=== PATIENT | female | born 1975 | race Caucasian/White ===

== ENCOUNTER 2017-12-06 07:39 | Outpatient (CLI) | payer OTHER ==
--- NOTE | 2017-12-06 09:35 | MRI Report ---
EXAM: MRI BRAIN WITHOUT CONTRAST EXAM DATE: 12/06/2017 08:31 AM. CLINICAL HISTORY: Headache. COMPARISON: None. TECHNIQUE: Multiplanar, multisequence T1-weighted and fluid-sensitive MR sequences of the brain were performed. Sequences optimized for routine evaluation. Other: None. IV Contrast: None. FINDINGS: Brain Volume: Normal for age. Parenchyma/Dura: No mass, acute infarct or hemorrhage. No white matter lesions identified. Ventricles/Cisterns: No hydrocephalus. No abnormal extra-axial fluid collection or hemorrhage. Orbits: Symmetric and unremarkable. Sella Turcica: No space-occupying mass in the region of the pituitary fossa. IAC: Grossly symmetric allowing for limited noncontrast imaging technique. Vasculature: Normal signal flow void is seen in the major arterial structures at the skull base. Sinuses: No acute paranasal sinus disease. Minimal nonspecific medial left mastoid fluid signal. Bones: No focal pathologic-appearing marrow signal changes. Other: None. IMPRESSION: 1. Normal MRI appearance of the brain. No evidence for acute intracranial abnormality. 2. Minimal nonspecific medial left mastoid fluid signal. [facility] Referring Provider Line: [phone] SITE ID: [id number]
== END 2017-12-06 07:40 | disposition home or self-care (01) ==
LOC: DI 07:39
PROVIDERS: ATTEND Family Medicine
DX: R51 Headache (principal)
CPT/HCPCS: 70551

== ENCOUNTER 2017-12-25 13:47 | Outpatient (CLI) | payer OTHER ==
[2017-12-25] MEDS ORDERED: IOPAMIDOL-300 100 ML VIAL ONE (14:22)
[2017-12-25] MEDS ORDERED: IOPAMIDOL-300 100 ML VIAL IVP ONE (16:11)
--- NOTE | 2017-12-25 22:55 | CT Report ---
EXAM: CT ANGIOGRAM HEAD. CT SCAN OF THE HEAD WITHOUT AND WITH CONTRAST. EXAM DATE: 12/25/2017 03:56 PM CLINICAL HISTORY: HEADACHES AWAKENING FROM SLEEP. COMPARISON: MR brain 12/06/2017. TECHNIQUE: - CT Scan Head: Using a multidetector scanner, axial images were acquired from the foramen magnum to the skull vertex prior to and following contrast administration. - CT Angiogram: Using a multidetector scanner, high-resolution axial images were acquired from the sk ull base through vertex following rapid infusion of intravenous contrast. Reformats: Multiplanar MIP reformats were reconstructed. Nascet criteria used for stenosis measurement. IV Contrast: 80 cc Isovue-370. In accordance with CT protocol optimization, one or more of the following dose reduction techniques w ere utilized for this exam: automated exposure control, adjustment of mA and/or KV based on patient s ize, or use of iterative reconstructive technique. FINDINGS: NON-CONTRAST HEAD: Parenchyma: No intraparenchymal hemorrhage. No evidence of mass, midline shift, or CT findings of inf arction. Villaseñor-white differentiation is distinct. Extraaxial Spaces: Normal for age. No subdural or epidural collections identified. Ventricles: Normal in size and position. Sinuses and orbits: Imaged paranasal sinuses, orbits, and mastoids show no significant abnormality. Bones: No evidence of fracture or calvarial defect. Other: None. POST-CONTRAST HEAD: No abnormal enhancement. CT ANGIOGRAM HEAD: Posterior circulation: Dominant left vertebral artery. Right vertebral artery is diminutive and supplies the right PICA dist ribution without a significant contribution to the basilar. Basilar artery and both posterior cerebra l arteries are patent and unremarkable. There are small patent posterior communicating arteries bilat erally. Anterior circulation: Both internal carotid arteries, anterior and middle cerebral arteries are patent and unremarkable. Th ere is a small patent anterior communicating artery. DURAL VENOUS SINUSES AND MAJOR CENTRAL VEINS: Patent. IMPRESSION: CT Head: No acute intracranial abnormality. Specifically, no evidence of acute infarct, hemorrhage, o r mass lesion. No abnormal enhancement. CTA Head: No significant abnormality. No major vessel stenosis, occlusion or aneurysm identified. [facility] Referring Provider Line: [phone] SITE ID: [id number]
== END 2017-12-25 13:48 | disposition home or self-care (01) ==
LOC: DI 13:47
PROVIDERS: ATTEND Psychiatry & Neurology Neurology
DX: R51 Headache (principal)
CPT/HCPCS: 70496; Q9967

== ENCOUNTER 2019-01-25 09:09 | Emergency (ER) | payer OTHER ==
[2019-01-25 09:40] VITALS: BP 129/86
--- NOTE | 2019-01-25 09:56 | ED Physician Documentation ---
PD HPI LOWER EXT INJURY - Stated complaint Stated Complaint: GLF/TOE PX - Chief complaint Chief Complaint: Ext Problem - History obtained from History obtained from: Patient - History of Present Illness PD HPI LOW EXT INJURY LOCATION: Right, Foot Type of injury: Fall Where injury occurred: Home Timing - onset: Last night Timing - duration: Hours Timing - details: Abrupt onset, Still present Improved by: Rest, Ice, Immobilization Worsened by: Moving, Palpating Associated symptoms: Swelling, Discolored Contributing factors: Other (prior fracture to same area) Similar symptoms before: Diagnosis (fx) Recently seen: Not recently seen - Additional information Additional information: Previously well 43-year-old female was walking down the stairs last night putting her sweatshirt on when she got to the nearly the bottom of the steps she realized the sweatshirt was on backwards and she had a hoodie up over her face. She was unable to see the steps she stepped wrong and twisted her foot underneath herself and fell onto her knees dorsiflexing the right fifth digit. She has some swelling tenderness and ecchymosis to this area and is walking on the inside of her foot. She has broken this bone previously. Review of Systems Constitutional: denies: Fever Eyes: denies: Decreased vision Ears: denies: Ear pain Nose: denies: Congestion Throat: denies: Sore throat Respiratory: denies: Cough GI: denies: Vomiting PD PAST MEDICAL HISTORY - Past Medical History Past Medical History: Yes [employer]: Endometriosis Musculoskeletal: Other Other Past Medical History: Arthritis-autoimmune. - Past Surgical History Past Surgical History: Yes - Present Medications Home Medications: Ambulatory Orders Medication Instructions Recorded Confirmed Cetirizine [ZyrTEC] 10 mg PO ONCE 09/01/17 09/01/17 FLUoxetine [PROzac] 40 mg PO DAILY 09/01/17 09/01/17 Meloxicam 7.5 mg PO DAILY 09/01/17 09/01/17 - Allergies Allergies/Adverse Reactions: Allergies Allergy/AdvReac Type Severity Reaction Status Date / Time adhesive tape Allergy Unknown Verified 01/25/19 09:41 amoxicillin Allergy Rash Verified 09/01/17 16:11 azithromycin Allergy Rash Verified 09/01/17 16:11 cephalexin [From Keflex] Allergy Rash Verified 09/01/17 16:11 codeine Allergy Emesis Verified 09/01/17 16:11 Latex, Natural Rubber Allergy Rash Verified 09/01/17 16:35 Penicillins Allergy Rash Verified 09/01/17 16:11 Sulfa (Sulfonamide Allergy Rash Verified 09/01/17 16:11 Antibiotics) - Social History Does the pt smoke?: No Smoking Status: Never smoker Does the pt drink ETOH?: No Does the pt have substance abuse?: No - Immunizations Immunizations are current?: Yes PD ED PE NORMAL - Vitals Vital signs reviewed: Yes (hypertensive ) - General General: Alert and oriented X 3, No acute distress, Well developed/nourished - HEENT HEENT: Atraumatic, PERRL, EOMI - Respiratory Respiratory: No respiratory distress - Derm Derm: Normal color, Warm and dry, No rash - Extremities Extremities: No deformity, Other (There is ecchymosis and tenderness to the right 5th toe laterally and distal to the MT. There is no tenderness to the proximal 5th or the distal 4th. ) - Neuro Neuro: No motor deficit, No sensory deficit Eye Opening: Spontaneous Motor: Obeys Commands Verbal: Oriented GCS Score: 15 - Psych Psych: Normal mood, Normal affect Results - Vitals Vitals: Vital Signs - 24 hr 01/25/19 09:37 Temperature 36.3 C L Heart Rate 100 Respiratory 18 Rate Blood Pressure 129/86 H O2 Saturation 99 Oxygen O2 Source Room air - Rads (name of study) foot Radiology: Prelim report reviewed (Impression: 1. Fifth proximal phalanx fracture. 2 Fourth digit distal phalanx base fracture.), EMP read indepedently, See rad report PD MEDICAL DECISION MAKING - ED course Complexity details: reviewed old records, reviewed results, re-evaluated patient, considered differential, d/w patient ED course: 43-year-old female with a broken toe is placed into a metatarsal bar shoe. Departure - Departure Disposition: 01 Home, Self Care Clinical Impression: Fracture of fifth toe, right, closed Qualifiers: Encounter type: initial encounter Qualified Code(s): S92.501A - Displaced unspecified fracture of right lesser toe(s), initial encounter for closed fracture Condition: Stable Instructions: ED Fx Toe Closed Follow-Up: AMANDA GLORIA [Primary Care Provider] -
--- NOTE | 2019-01-25 10:08 | XRAY Report ---
Reason: injury Procedure Date: 01/25/2019 Accession Number: [id number] / [id number] Procedure: XR - Foot 3 View RT CPT Code: FULL RESULT: EXAM: RIGHT FOOT RADIOGRAPHY EXAM DATE: 01/25/2019 09:59 AM. CLINICAL HISTORY: Injury. Soft tissue swelling COMPARISON: None. TECHNIQUE: 3 views. FINDINGS: Bones: Fifth proximal phalanx fracture oblique horizontal comminuted distal aspect. Fourth digit distal phalanx base fracture reaching the articular surface Joints: Normal. No subluxations. Soft Tissues: Soft tissue swelling. IMPRESSION: 1. Fifth proximal phalanx fracture 2. Fourth digit distal phalanx base fracture [facility]
== END 2019-01-25 11:25 | disposition home or self-care (01) ==
LOC: ED 09:09
DX: S92.511A Displaced fracture of proximal phalanx of right lesser toe(s), initial encounter for closed fracture (principal); W10.9XXA Fall (on) (from) unspecified stairs and steps, initial encounter; Y93.89 Activity, other specified; Y92.009 Unspecified place in unspecified non-institutional (private) residence as the place of occurrence of the external cause
CPT/HCPCS: 99283